=== PATIENT | male | born 1950 | race Caucasian/White ===

== ENCOUNTER → 2018-12-19 | Outpatient (CLI) | payer OTHER ==
[~2018-12-19] MED LIST: BABY ASPIRIN PO; BREO ELLIPTA 11 EACH; CELEBREX 200 M200 MG PO; CENTRUM SILVER1 EAC2 PO; FLONASE 0.05%50 MCG NASAL; OMEGA-31000 M1 PO; OMEPRAZOLE40 MG PO; PERCOCET PO; PRAVACHOL20 MG PO; SAW PALMETTO PO; TOPROL XL25 MG PO; TUMERIC CURCUMIN; VITAMINC500 PO
--- NOTE | 2018-12-20 08:10 | EKG ---
[address] [address] ELECTROCARDIOGRAM REPORT Name: MARY ANNJOSE Room #: [facility] [place]#: [id number] ������������������ Admission: 12/19/18 ������������������ Attend Phys: Honey Loyd MD Discharge: ������������������ Date of : 52 Report #: [id number] ����������������������������������������������������������������� [id number] THIS REPORT FOR: //name// [facility] Test Date: 2018-12-19 Test Time: 13:53:59 Pat Name: JOSE REESE Department: Room: Gender: Clinical Education Coordinator: ANAND : 1950 Requested By: Honey Loyd Order Number: [id number] MD: Zaheer Hernandez Measurements Intervals [place] Rate: 64 P: 41 TN: 188 QRS: 3 QRSD: 95 T: 32 QT: 401 QTc: 414 Interpretive Statements Sinus rhythm Normal tracing No previous ECG available for comparison Electronically Signed On 12-20-2018 8:10:14 CDT by Zaheer Hernandez [email or web address] ��������������������������������������������� <ELECTRONICALLY SIGNED> ���������������������������������������� By: Zaheer Hernandez MD, [facility] ��������������������������������������������� 12/20/18 0810 1353 1353 Zaheer Hernandez MD, FACC /EPI
== END | disposition home or self-care (01) ==
LOC: LITH 13:31
DX: N20.1 Calculus of ureter (principal); I25.2 Old myocardial infarction; E78.00 Pure hypercholesterolemia, unspecified; J45.909 Unspecified asthma, uncomplicated; K21.9 Gastro-esophageal reflux disease without esophagitis; Z95.1 Presence of aortocoronary bypass graft; Z98.890 Other specified postprocedural states; Z95.5 Presence of coronary angioplasty implant and graft; Z79.899 Other long term (current) drug therapy